=== PATIENT | male | born 1995 ===

== ENCOUNTER 2023-04-04 11:55 | Emergency (ER) | payer MEDICARE, MEDICAID ==
[2023-04-04] MEDS ORDERED: ONDANSETRON INJECTION 4 MG/2 ML (SDV) IVP ONE (12:15)
[2023-04-04] MEDS ORDERED: NS IV 1000 ML 1,000 ML IV SCH (12:15)
[2023-04-04 12:25] LABS: BASOPHILS % (AUTO) 1 % (0-10); EOSINOPHILS # (AUTO) 0.3 10^3/uL (0.0-0.3); EOSINOPHILS % (AUTO) 5 % (0-10); HEMATOCRIT 39 % (40-54); HEMOGLOBIN 13.6 g/dL (13.3-17.7); LYMPHOCYTES # (AUTO) 1.8 10^3/uL (1.0-4.0); LYMPHOCYTES % (AUTO) 28 % (12-44); MEAN CORPUSCULAR HEMOGLOBIN 31 pg (25-34); MEAN CORPUSCULAR HGB CONC 35 g/dL (32-36); MEAN CORPUSCULAR VOLUME 90 fL (80-99); MEAN PLATELET VOLUME 9.7 fL (9.0-12.2); MONOCYTES # (AUTO) 0.4 10^3/uL (0.0-1.0); MONOCYTES % (AUTO) 6 % (0-12); NEUTROPHILS # (AUTO) 3.8 10^3/uL (1.8-7.8); NEUTROPHILS % (AUTO) 60 % (42-75); PLATELET COUNT 191 10^3/uL (130-400); WHITE BLOOD COUNT 6.4 10^3/uL (4.3-11.0)
--- NOTE | 2023-04-04 12:35 | ED GI ---
General Chief Complaint: Abdominal/GI Problems Stated Complaint: ABD PAIN Nursing Triage Note: PT AMB TO RM 3 PT IS FROM [facility], PT STATES HAS BEEN HAVING N/V/D FOR APPROX 3 WEEKS. History of Present Illness Date Seen by Provider: Apr 04, 2023 Time Seen by Provider: 12:00 Initial Comments 28 year old male from [facility] reports 2 week history of n/v/d with abdominal pain. Denies previous abdominal surgeries. Reports D/V 3-5 times daily, last episode just [employer]. Followed by [facility] Dept for behavioral health, no PCP. Labs reviewed from 03/15/23 Mag Lab that patient brought. building attendant present. Reports being in halfway prior to [place]. Takes [place] and Valproic Acid, levels checked on 03/15/23 labs, [place] 0.7 and Valproic Acid 41. Hx of AUTISM, TOURETTEE, DEPRESSION,GERD, HALLUCINATIONS Timing/Duration: Constant (2 weeks) Severity/Quality: Moderate Location: Generalized Abdomen Radiation: No Radiation Associated Symptoms: No Back Pain, No Chest Pain, No Diaphoresis, No Fever/Chil ls, No Fatigue, No Headache, No Heartburn; Nausea/Vomiting; No Shortness of Air, No Swelling/Mass in Abdomen Allergies and Home Medications Allergies Uncoded Allergies: ENVIRONMENTAL ALLERGIES (Allergy, Unknown, 04/04/23) MELONS AND CUCUMBERS (Allergy, Unknown, 04/04/23) Patient Home Medication List Home Medication List Reviewed: Yes Ondansetron (Ondansetron Odt) 4 Mg Tab.rapdis, 4 MG PO Q6H PRN for NAUSEA/VOMITING Prescribed by: FANTA HOLLAND on 04/04/23 1326 Review of Systems Review of Systems Constitutional: no symptoms reported, see HPI Gastrointestinal: See HPI, Abdominal Pain, Diarrhea, Nausea, Poor Appetite, Vomiting All Other Systems Reviewed Negative Unless Noted: Yes Past Wdacpdq-Guxfxu-Jzdcgd Hx Patient Social History Tobacco Use?: No Substance use?: No Alcohol Use?: No Pt feels they are or have been: No Past Medical History Surgery/Hospitalization HX: AUTISM, TOURETTEE, DEPRESSION,GERD, HALLUCINATIONS Family Medical History Reviewed Nursing Family Hx Physical Exam Vital Signs Vital Signs - First Documented 04/04/23 12:00 Pulse 79 Resp 18 B/P (MAP) 133/81 (98) Pulse Ox 100 Capillary Refill : Less Than 3 Seconds Height/Weight/BMI Height: '" Weight: lbs. oz. kg; BMI Method: General Appearance: WD/WN, mild distress (secondary to pain) HEENT: normal ENT inspection, TMs normal, pharynx normal Neck: non-tender, full range of motion, supple Respiratory: chest non-tender, lungs clear, normal breath sounds Cardiovascular: normal peripheral pulses, regular rate, rhythm Gastrointestinal: normal bowel sounds, soft; No distended, No rebound; tenderness (genearlized to light touch) Back: normal inspection, no CVA tenderness, no vertebral tenderness Neurologic/Psychiatric: no motor/sensory deficits, alert, normal mood/affect, oriented x 3 Skin: normal color, warm/dry Progress/Results/Core Measures Results/Orders Lab Results Laboratory Tests Test 04/04/23 12:15 04/04/23 12:57 Range/Units White Blood Count 6.4 4.3-11.0 10^3/uL Red Blood Count 4.35 4.30-5.52 10^6/uL Hemoglobin 13.6 13.3-17.7 g/dL Hematocrit 39 L 40-54 % Mean Corpuscular Volume 90 80-99 fL Mean Corpuscular Hemoglobin 31 25-34 pg Mean Corpuscular Hemoglobin Concent 35 32-36 g/dL Red Cell Distribution Width 11.7 10.0-14.5 % Platelet Count 191 130-400 10^3/uL Mean Platelet Volume 9.7 9.0-12.2 fL Immature Granulocyte % (Auto) 1 % Neutrophils (%) (Auto) 60 42-75 % Lymphocytes (%) (Auto) 28 12-44 % Monocytes (%) (Auto) 6 0-12 % Eosinophils (%) (Auto) 5 0-10 % Basophils (%) (Auto) 1 0-10 % Neutrophils # (Auto) 3.8 1.8-7.8 10^3/uL Lymphocytes # (Auto) 1.8 1.0-4.0 10^3/uL Monocytes # (Auto) 0.4 0.0-1.0 10^3/uL Eosinophils # (Auto) 0.3 0.0-0.3 10^3/uL Basophils # (Auto) 0.0 0.0-0.1 10^3/uL Immature Granulocyte # (Auto) 0.0 0.0-0.1 10^3/uL Sodium Level 139 135-145 MMOL/L Potassium Level 4.0 3.6-5.0 MMOL/L Chloride Level 109 H 98-107 MMOL/L Carbon Dioxide Level 23 21-32 MMOL/L Anion Gap 7 5-14 MMOL/L Blood Urea Nitrogen 12 7-18 MG/DL Creatinine 1.05 0.60-1.30 MG/DL Estimat Glomerular Filtration Rate 100 BUN/Creatinine Ratio 11 Glucose Level 95 70-105 MG/DL Calcium Level 9.4 8.5-10.1 MG/DL Corrected Calcium 9.1 8.5-10.1 MG/DL Total Bilirubin 0.8 0.1-1.0 MG/DL Aspartate Amino Transf (AST/SGOT) 18 5-34 U/L Alanine Aminotransferase (ALT/SGPT) 25 0-55 U/L Alkaline Phosphatase 56 40-136 U/L C-Reactive Protein High Sensitivity 0.03 0.00-0.50 MG/DL Total Protein 6.6 6.4-8.2 GM/DL Albumin 4.4 3.2-4.5 GM/DL Urine Color YELLOW Urine Clarity CLEAR Urine pH 6.0 5-9 Urine Specific [place] 1.020 1.016-1.022 Urine Protein NEGATIVE NEGATIVE Urine Glucose (UA) NEGATIVE NEGATIVE Urine Ketones NEGATIVE NEGATIVE Urine Nitrite NEGATIVE NEGATIVE Urine Bilirubin NEGATIVE NEGATIVE Urine Urobilinogen 0.2 < = 1.0 MG/DL Urine Leukocyte Esterase NEGATIVE NEGATIVE Urine RBC (Auto) NEGATIVE NEGATIVE Urine RBC NONE /HPF Urine WBC NONE /HPF Urine Crystals NONE /LPF Urine Bacteria NEGATIVE /HPF Urine Casts NONE /LPF Urine Mucus NEGATIVE /LPF Urine Culture Indicated NO My Orders Orders - FANTA HOLLAND Cbc And Automated Diff (04/04/23 12:15) Comprehensive Metabolic Panel (04/04/23 12:15) Hs C Reactive Protein (04/04/23 12:15) Ua Culture If Indicated (04/04/23 12:15) Ondansetron Injection (Ondansetron Inj (04/04/23 12:15) Ed Iv/Invasive Line Start (04/04/23 12:15) Ns Iv 1000 Ml (Ns Iv 1000 Ml) (04/04/23 12:15) Medications Given in ED Current Medications Medications Dose Ordered Sig/Fe Route Start Time Stop Time Status Last Admin Dose Admin Ondansetron HCl 4 mg ONCE ONCE IVP 04/04/23 12:15 04/04/23 12:17 DC 04/04/23 12:26 4 MG Vital Signs/I&O 04/04/23 04/04/23 12:00 13:36 Pulse 79 79 Resp 18 18 B/P (MAP) 133/81 (98) 133/81 Pulse Ox 100 100 Blood Pressure Mean: 98 Progress Progress Note : Time: 12:00 Progress Note Patient assessed, will obtain labs, normal saline 1 L per IV and Zofran 4 mg for nausea. Of note when reviewing patient's medication he is getting Colace twice daily. 1215 patient requesting food, will give minimal ice chips until labs return. 1300 labs normal, no N/V/D since admission. Took ice chips. IV fluids infusing. Denies abdominal pain at this time. 1320 Discharge instructions and return precautions reviewed. Departure Impression Primary Impression: Nausea vomiting and diarrhea Additional Impression: Abdominal pain Qualified Codes: R10.84 - Generalized abdominal pain Disposition: HOME, SELF-CARE Condition: Improved Departure-Patient Inst. Decision time for Depature: 13:10 Referrals: [facility] NO,LOCAL PHYSICIAN (PCP) Primary Care Physician Patient Instructions: Severe Abdominal Pain, Adult (DC), Nausea and Vomiting, Adult (DC) Add. Discharge Instructions: Hold Colace,unless patient experiencing Constipation. Clear liquid diet for next 4-6 hours, then bland diet. Avoid greasy, spicy, or fried foods. Eat one cup of Activia daily. Establish care with Primary Care, follow there for medical management and continued symptoms. Use Zofran for Nausea/Vomiting. Use Over the Counter Imodium for Diarrhea. Alternate between Tylenol 650 mg and ibuprofen 600 mg every 4 hours for pain. Increase water intake. Return to Emergency Dept for new, urgent healthcare needs. All discharge instructions reviewed with patient and/or family. Voiced understanding. Scripts Ondansetron (Ondansetron Odt) 4 Mg Tab.rapdis 4 MG PO Q6H PRN for NAUSEA/VOMITING, #20 TAB 0 Refills Prov: FANTA HOLLAND 04/04/23 FANTA HOLLAND Apr 04, 2023 12:35
[2023-04-04 12:51] LABS: ALBUMIN 4.4 GM/DL (3.2-4.5)
[2023-04-04 12:53] LABS: CALCIUM 9.4 MG/DL (8.5-10.1)
[2023-04-04 12:54] LABS: TOTAL PROTEIN 6.6 GM/DL (6.4-8.2)
[2023-04-04 12:55] LABS: BILIRUBIN,TOTAL 0.8 MG/DL (0.1-1.0)
[2023-04-04 12:57] LABS: CREATININE SERUM 1.05 MG/DL (0.60-1.30)
[2023-04-04 13:15] LABS: BACTERIA,URINE NEGATIVE /HPF; BILIRUBIN,URINE NEGATIVE (NEGATIVE); CLARITY,URINE CLEAR; COLOR,URINE YELLOW; GLUCOSE, URINE (UA) NEGATIVE (NEGATIVE); KETONES,URINE NEGATIVE (NEGATIVE); LEUKOCYTE ESTERASE ,URINE NEGATIVE (NEGATIVE); NITRITE,URINE NEGATIVE (NEGATIVE); PROTEIN,URINE NEGATIVE (NEGATIVE)
[2023-04-04] MEDS ORDERED: ONDA4TAB11 PO (13:26)
[2023-04-04 13:36] VITALS: BP 133/81
== END 2023-04-04 13:36 | disposition home or self-care (01) ==
LOC: ER 11:58
DX: R11.2 Nausea with vomiting, unspecified (principal); R19.7 Diarrhea, unspecified; R10.84 Generalized abdominal pain; Z87.19 Personal history of other diseases of the digestive system
CPT/HCPCS: 36415; 80053; 81000; 85025; 86141

== ENCOUNTER 2023-05-05 18:50 | Emergency (ER) | payer MEDICARE, MEDICAID ==
[~2023-05-05] VITALS: Ht 177.8 cm; Wt 97.0 kg
[~2023-05-05 18:50] MED LIST: ONDA4TAB11 PO
[2023-05-05 19:18] VITALS: BP 161/82
[2023-05-05] MEDS ORDERED: ACETAMINOPHEN 500 MG TABLET PO ONE (19:45)
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
--- NOTE | 2023-05-05 20:24 | Diagnostic Imaging Report ---
EXAMINATION: Bilateral hand radiographs. EXAM DATE: 05/05/2023 8:16 PM. COMPARISON: None available. HISTORY: Bilateral hand pain. TECHNIQUE: 6 views. FINDINGS: There is no acute fracture, dislocation, or destructive osseous process. The joint spaces are normal. There is a tiny radiopacity along the ulnar aspect of the left 5th digit proximal interphalangeal joint. IMPRESSION: 1. No acute osseous abnormality. 2. Questionable tiny foreign body along the ulnar aspect of the left 5th digit proximal interphalangeal joint. Dictated by: Dictated on workstation # [id number]
--- NOTE | 2023-05-05 20:43 | Diagnostic Imaging Report ---
EXAMINATION: Bilateral wrist radiographs. EXAM DATE: 05/05/2023 8:16 PM. COMPARISON: None available. HISTORY: Wrist pain. TECHNIQUE: 6 views. FINDINGS: There is no acute fracture, dislocation, or destructive osseous process. The joint spaces are normal. The soft tissues are normal. IMPRESSION: No acute osseous abnormality. Dictated by: Dictated on workstation # [id number]
[2023-05-05] MEDS ORDERED: LIDOCAINE 1% INJ 10 ML VIAL INJ ONE (20:45)
[2023-05-05] MEDS ORDERED: LIDOCAINE 1% INJ 20 ML VIAL ONE (20:49)
[2023-05-05] MEDS ORDERED: CEPH500T PO (21:28)
[2023-05-05] MEDS ORDERED: CEPHALEXIN 250 MG CAPSULE PO ONE (21:30)
== END 2023-05-05 22:03 | disposition home or self-care (01) ==
LOC: EDUNIT# 18:50 → ER 18:52
DX: S60.457A Superficial foreign body of left little finger, initial encounter (principal); S60.511A Abrasion of right hand, initial encounter; W22.8XXA Striking against or struck by other objects, initial encounter

== ENCOUNTER 2023-06-01 21:40 | Emergency (ER) | payer MEDICARE, MEDICAID ==
[~2023-06-01] VITALS: Ht 177.8 cm; Wt 96.6 kg
[~2023-06-01 21:40] MED LIST changes: +CEPH500T PO
[2023-06-01 21:50] VITALS: BP 140/83
[2023-06-01] MEDS ORDERED: AMOXICILLIN/Clavulanate 875 MG TABLET PO STA (22:00)
[2023-06-01] MEDS ORDERED: HYDROcodone/ACETAMINOPHEN 7.5 MG/325 MG TABLET PO STA (22:00)
--- NOTE | 2023-06-01 22:03 | ED EENT ---
History of Present Illness General Chief Complaint: Dental Problems/Pain Stated Complaint: TOOTH PAIN Source: patient Exam Limitations: no limitations (KELSEY LYNNE) History of Present Illness Date Seen by Provider: Jun 01, 2023 Time Seen by Provider: 22:01 Initial Comments Patient is a 28-year-old male who presents ED with right lower dental pain. Dental pain for the past 2 weeks. States he has been seen by a dentist. They are currently working on paperwork to get several of his teeth removed. Patient has reported increased pain gum swelling redness. Pain with eating. Denies any fever chills or facial swelling or redness, chest pain, shortness of breath or cough. Has been taking ibuprofen and Tylenol without much improvement. Difficulty sleeping secondary to the pain. (KELSEY LYNNE) Allergies and Home Medications Allergies Uncoded Allergies: ENVIRONMENTAL ALLERGIES (Allergy, Unknown, 04/04/23) MELONS AND CUCUMBERS (Allergy, Unknown, 04/04/23) Patient Home Medication List Home Medication List Reviewed: Yes (KELSEY LYNNE) Amoxicillin/Potassium Clav (Amox Tr-K Clv 875-125 mg Tab) 875 Mg-125 Mg Tablet, 1 EACH PO BID Prescribed by: SHANIQUE CHEN on 06/01/232205 Cephalexin (Cephalexin) 500 Mg Tablet, 500 MG PO QID Prescribed by: Sayda Marie on 05/05/232127 Hydrocodone/Acetaminophen (Hydrocodone-Acetamin 5-325 mg) 5 Mg-325 Mg Tablet, 1 TAB PO Q4H PRN for PAIN-MODERATE (5-7) Prescribed by: SHANIQUE CHEN on 06/01/232205 Ondansetron (Ondansetron Odt) 4 Mg Tab.rapdis, 4 MG PO Q6H PRN for NAUSEA/VOMITING Prescribed by: FANTA HOLLAND on 04/04/23 1326 Review of Systems Review of Systems Constitutional: No chills, No diaphoresis, No malaise, No weakness Eyes: Denies Blurred Vision, Denies Drainage, Denies Decreased Acuity Ears: Denies Dizziness, Denies Pain Nose: denies clots, denies congestion Mouth: denies clots, denies loose teeth; pain, other (dental pain) Throat: denies pain, denies swelling, denies neck stiffness, denies hoarse, denies painful swallowing, denies difficulty with fluids Respiratory: No cough, No dyspnea on exertion Cardiovascular: No chest pain, No edema, No syncope Gastrointestinal: No abdominal pain, No constipation, No nausea, No vomiting Skin: No change in color, No change in hair/nails Neurological: Denies Anxiety, Denies Depressed (KELSEY LYNNE) All Other Systems Reviewed Negative Unless Noted: Yes (KELSEY LYNNE) Past Yconoay-Gvecrv-Pkmpzm Hx Past Medical History Surgery/Hospitalization HX: AUTISM, TOURETTEE, DEPRESSION,GERD, HALLUCINATIONS (KELSEY LYNNE) Physical Exam Vital Signs Vital Signs - First Documented 06/01/23 21:50 Temp 37.2 Pulse 80 Resp 18 B/P (MAP) 140/83 (102) Pulse Ox 98 O2 Delivery Room Air (DENNY,KYUNG K DO) Height, Weight, BMI Height: '" Weight: lbs. oz. kg; 30.00 BMI Method: General Appearance: WD/WN, no apparent distress Eyes: bilateral eye normal inspection, bilateral eye PERRL, bilateral eye EOMI Ears: bilateral ear auricle normal, bilateral ear canal normal, bilateral ear TM normal Nose: normal inspection Mouth/Throat: other (Extensive decay throughout. Right lower gum swelling redness. No palpable abscess. No facial swelling or redness. Oropharynx pain with erythema, swelling, exudate.) Neck: non-tender, full range of motion, supple Cardiovascular: regular rate, rhythm, no edema, no gallop, no JVD Respiratory: chest non-tender, lungs clear, normal breath sounds, no respiratory distress, no accessory muscle use Gastrointestinal: normal bowel sounds, non tender, soft, no organomegaly Neurologic/Psychiatric: manager client II-XII nml as tested, no motor/sensory deficits, alert, normal mood/affect, oriented x 3 Skin: normal color, warm/dry (KELSEY LYNNE) Departure Communication (PCP) Patient with extensive decay. No obvious abscess. No facial swelling or redness. Tolerating secretions. No stridor. No anterior neck tenderness suggesting Saulo angina. No parotid or submandibular tenderness suggesting sialadenitis. No lymphadenopathy. Concern for dental infection. Potential periapical abscess. Scheduled to follow-up with a dentist once his paperwork finalized. Has been evaluated. Will discharge with Augmentin and a few days worth of pain medication. Continue with ibuprofen. If any worsening pain, redness or swelling to return back to ED. Soft foods. Follow-up with your dentist. Patient does not appear toxic or septic. No systemic symptoms (KELSEY LYNNE) Impression Primary Impression: Pain, dental Disposition: HOME, SELF-CARE Condition: Stable Departure-Patient Inst. Decision time for Depature: 22:04 (KELSEY LYNNE) Referrals: NO,LOCAL PHYSICIAN (PCP/Family) Primary Care Physician Patient Instructions: Dental Pain Add. Discharge Instructions: Recommend follow-up with a dentist. Soft foods. May continue with ibuprofen. Hydrocodone as needed. Take antibiotics as prescribed. If any worsening pains swelling or redness to return back to ED All discharge instructions reviewed with patient and/or family. Voiced understanding. Scripts Hydrocodone/Acetaminophen (Hydrocodone-Acetamin 5-325 mg) 5 Mg-325 Mg Tablet 1 TAB PO Q4H PRN for PAIN-MODERATE (5-7), #8 TAB Prov: KELSEY LYNNE 06/01/23 Amoxicillin/Potassium Clav (Amox Tr-K Clv 875-125 mg Tab) 875 Mg-125 Mg Tablet 1 EACH PO BID for 7 Days, #14 TAB Prov: KELSEY LYNNE 06/01/23 ATTENDING PHYSICIAN NOTE: I WAS PHYSICALLY PRESENT ER PHYSICIAN, BUT I WAS NOT INVOLVED IN ANY DECISION MAKING OR ANY CARE OF THIS PATIENT, AND I AM NOT COLLABORATING PHYSICIAN. (KYUNG BALDWIN DO) KELSEY LYNNE Jun 01, 2023 22:03 KYUNG BALDWIN DO Jun 02, 2023 18:13
[2023-06-01] MEDS ORDERED: AMOX1TAB12 PO (22:06)
[2023-06-01] MEDS ORDERED: ACHD5005 PO (22:06)
== END 2023-06-01 22:13 | disposition home or self-care (01) ==
LOC: EDUNIT# 21:40 → ER 21:42
DX: K02.9 Dental caries, unspecified (principal)
CPT/HCPCS: 99283